=== PATIENT | female | born 1985 | race Caucasian/White ===

== ENCOUNTER 2018-04-05 15:25 | Outpatient (CLI) | payer OTHER ==
--- NOTE | 2018-04-05 18:15 | MRI Report ---
Reason: HEADACHE, CERVICALGIA Procedure Date: 04/05/2018 Accession Number: [id number] / [id number] Procedure: MRI - Cervical Spine W/O CPT Code: FULL RESULT: EXAM: MRI CERVICAL SPINE WITHOUT CONTRAST EXAM DATE: 04/05/2018 03:49 PM. CLINICAL HISTORY: Headache, cervicalgia. COMPARISONS: None. TECHNIQUE: Multiplanar, multisequence T1-weighted and fluid-sensitive sequences of the cervical spine without contrast. Other: None. FINDINGS: Neurologic Structures: The visualized posterior fossa structures are unremarkable. No signal abnormality in the visualized spinal cord. Alignment: No scoliosis or spondylolisthesis. Bone Marrow: No gross fractures or bone lesions. No marrow edema. Interspace Levels/Facets: C1-C2: Unremarkable. C2-C3: Unremarkable. C3-C4: Unremarkable. C4-C5: Minimal broad-based posterior disk bulge. Slight thecal sac indentation but no neural impingement or stenosis. C5-C6: Very shallow posterior disk bulge, no significant mass effect, otherwise unremarkable. C6-C7: Unremarkable. C7-T1: Unremarkable. Musculature: Normal. No edema or fatty atrophy. Other: The paravertebral and prevertebral soft tissues are normal. IMPRESSION: Minimal disk bulges at C4-C5 and C5-C6. No stenosis. Otherwise normal. RADIA
--- NOTE | 2018-04-05 19:05 | MRI Report ---
Reason: HEADACHE, CERVICALGIA Procedure Date: 04/05/2018 Accession Number: [id number] / [id number] Procedure: MRI - Brain W/O CPT Code: FULL RESULT: EXAM: MRI BRAIN WITHOUT CONTRAST EXAM DATE: 04/05/2018 04:12 PM. CLINICAL HISTORY: HEADACHE, CERVICALGIA. COMPARISON: CERVICAL SPINE W/O 04/05/2018 3:49 PM. TECHNIQUE: Multiplanar, multisequence T1-weighted and fluid-sensitive MR sequences of the brain were performed. Sequences optimized for routine evaluation. Other: None. IV Contrast: None. FINDINGS: Brain Volume: Normal for age. Parenchyma/Dura: No mass, acute infarct or hemorrhage. No white matter lesions identified. No Chiari malformation. Ventricles/Cisterns: No hydrocephalus. No abnormal extra-axial fluid collection or hemorrhage. Orbits: Symmetric and unremarkable. Sella Turcica: The pituitary gland, cavernous sinuses, suprasellar cistern and optic chiasm are unremarkable. IAC: Symmetric and unremarkable. Vasculature: Normal signal flow void is seen in the major arterial structures at the skull base. Sinuses: No acute appearing sinus disease. Bones: No focal pathologic appearing marrow signal changes. Other: None. IMPRESSION: 1. Normal brain MRI. RADIA
== END 2018-04-05 15:26 | disposition home or self-care (01) ==
LOC: DI 15:25
PROVIDERS: ATTEND Family Medicine
DX: M50.221 Other cervical disc displacement at C4-C5 level (principal); R51 Headache
CPT/HCPCS: 70551; 72141

== ENCOUNTER 2019-03-22 02:53 | Emergency (ER) | payer OTHER ==
--- NOTE | 2019-03-22 03:13 | ED Physician Documentation ---
PD HPI ABD PAIN - Stated complaint Stated Complaint: ABD PX - Chief complaint Chief Complaint: Abd Pain - History obtained from History obtained from: Patient - History of Present Illness Timing - onset: How many weeks ago (2) Timing - details: Gradual onset Quality: Other ("Heaviness") Location: All over / everywhere Radiation: Left flank, Right flank Worsened by: Other (Drinking water tonight) Associated symptoms: Nausea, Constipation, Dizzy, Near syncope / syncope. No: Fever, Vomiting, Diarrhea, Vaginal bleeding - Additional information Additional information: This is a 33-year-old woman who is 18 weeks by ultrasound presents tonight with complaints of stomach pain is been going on for couple weeks. She describes it as a heaviness that she feels particular if she lays on her left side of her and then gets up she can feel it can move into more central around her chest. Wraps around both sides worse on the left side to her back and is been significant enough that it prevents her from eating. Her stools were soft and regular until she stopped taking her probiotics this week and she became constipated so she restarted them yesterday and says she is no longer. She came in tonight because she drank some room temperature water on her bedside table and it just precipitated such intense increase in the pain that she broke out in a sweat and got dizzy and was feeling very faint. She felt nauseous with that intense pain but never vomited. She wonders if this could be related to the daily aspirin she was placed on a 12 weeks of to prevent preeclampsia. She denies any vaginal bleeding and she is feeling the baby move. She felt dizzy but did not pass out. She denies any recent illness of sore throat or cough. She is 7 para 3 with 2 spontaneous and one therapeutic . She is not currently working outside the home. Review of Systems Constitutional: reports: Sweats. denies: Fever Ears: denies: Ear pain Nose: denies: Congestion Throat: denies: Sore throat Cardiac: denies: Chest pain / pressure Respiratory: denies: Dyspnea GI: reports: Abdominal Pain, Nausea, Constipation. denies: Vomiting : reports: Now EGA (18 weeks by U/S). denies: Dysuria, Hematuria Skin: denies: Rash Musculoskeletal: reports: Back pain Neurologic: reports: Near syncope PD PAST MEDICAL HISTORY - Past Medical History Cardiovascular: None Respiratory: None Endocrine/Autoimmune: None GI: None REMEDY DEVELOPER: Ovarian cysts : None HEENT: None Psych: Depression Musculoskeletal: None Derm: None - Past Surgical History Past Surgical History: Yes /REMEDY DEVELOPER: Other - Present Medications Home Medications: Ambulatory Orders Medication Instructions Recorded Confirmed Albuterol Sulf [Ventolin Hfa 2 puffs INH Q4HR PRN #1 inhaler 03/08/17 Inhaler] - Allergies Allergies/Adverse Reactions: Allergies Allergy/AdvReac Type Severity Reaction Status Date / Time Penicillins Allergy Unknown Verified 03/08/17 17:07 - Social History Does the pt smoke?: No Smoking Status: Never smoker Does the pt drink ETOH?: No Does the pt have substance abuse?: No - Immunizations Immunizations are current?: Yes - POLST Patient has POLST: No PD ED PE NORMAL - Vitals Vital signs reviewed: Yes - General General: Alert and oriented X 3, No acute distress, Well developed/nourished - HEENT HEENT: Atraumatic, PERRL, EOMI, Moist mucous membranes, Pharynx benign - Neck Neck: Supple, no meningeal sign - Cardiac Cardiac: RRR, No murmur, Strong equal pulses - Respiratory Respiratory: No respiratory distress, Clear bilaterally - Abdomen Abdomen: Normal bowel sounds, Soft, Other (There is tenderness in the right upper quadrant. The uterus is gravid just below the level of the umbilicus. No other definite masses.) - Back Back: No CVA TTP - Derm Derm: Normal color, Warm and dry, No rash - Neuro Neuro: Alert and oriented X 3, sales solutions associate 2-12 intact, No motor deficit, No sensory deficit, Normal speech - Psych Psych: Normal mood, Normal affect Results - Vitals Vitals: Vital Signs - 24 hr 03/22/19 03/22/19 03/22/19 09:34 11:00 11:50 Heart Rate 102 H 88 93 Respiratory 15 15 18 Rate Blood Pressure 120/80 118/78 109/73 O2 Saturation 98 100 98 Oxygen O2 Source Room air - Labs Labs: Laboratory Tests 03/22/19 03/22/19 03/22/19 03:40 03:45 03:45 WBC 13.1 H RBC 4.04 L Hgb 11.7 L Hct 35.7 L MCV 88.4 MCH 29.0 MCHC 32.8 RDW 13.0 Plt Count 238 MPV 11.2 H Neut # (Auto) 9.9 H Lymph # (Auto) 2.0 [place] # (Auto) 0.8 Eos # (Auto) 0.3 Baso # (Auto) 0.1 Absolute Nucleated RBC 0.00 Nucleated RBC % 0.0 Sodium 138 Potassium 3.3 L Chloride 102 Carbon Dioxide 24 Anion Gap 12.0 BUN 10 Creatinine 0.6 Estimated GFR (MDRD) 114 Glucose 94 Calcium 9.2 Total Bilirubin 0.3 AST 14 ALT 13 Alkaline Phosphatase 80 Total Protein 7.5 Albumin 3.4 Globulin 4.1 Albumin/Globulin Ratio 0.8 L Lipase 29 Urine Color YELLOW Urine Clarity CLEAR Urine pH 7.0 Ur Specific [place] <=1.005 Urine Protein NEGATIVE Urine Glucose (UA) NEGATIVE Urine Ketones NEGATIVE Urine Occult Blood TRACE-LYSE Urine Nitrite NEGATIVE Urine Bilirubin NEGATIVE Urine Urobilinogen 0.2 (NORMAL) Ur Leukocyte Esterase NEGATIVE Ur Microscopic Review NOT INDICATED Urine Culture Comments NOT INDICATED PD MEDICAL DECISION MAKING - ED course Complexity details: reviewed results, re-evaluated patient, d/w patient, d/w family ED course: Patient's white blood cell count is mildly elevated at 13.1. CMP and lipase are normal. Her urinalysis is negative and no protein in it. On reevaluation she still having tenderness in the right quadrant with some guarding. I did have ultrasound come in to evaluate the appendix and gallbladder. She has not had anything to eat since 5:30 last night. heart tones were 166. Patient calculates out to 18 weeks and 6 days gestation based on her due date. Late entry: Care turned over to Dr Lucas for final disposition. Departure - Departure Disposition: 02 Transfer Acute Care Hosp Clinical Impression: Abdominal pain, , Leukocytosis Condition: Stable Discharge Date/Time: 03/22/19 12:01
[2019-03-22 03:57] LABS: BASOPHILS # (AUTO) 0.1 10^3/uL (0.0-0.1); BASOPHILS % (AUTO) 0.5 %; EOSINOPHILS # (AUTO) 0.3 10^3/uL (0.0-0.7); EOSINOPHILS % (AUTO) 2.1 %; HGB - HEMOGLOBIN 11.7 g/dL (12.0-16.0); LYMPHOCYTES % (AUTO) 15.1 %; MEAN CORPUSCULAR HGB CONC 32.8 g/dL (32.0-36.0); MEAN CORPUSCULAR VOLUME 88.4 fL (81.0-99.0); MEAN PLATELET VOLUME 11.2 fL (7.9-10.8); MONOCYTES # (AUTO) 0.8 10^3/uL (0.0-1.0); MONOCYTES % (AUTO) 5.8 %; NEUTROPHILS # (AUTO) 9.9 10^3/uL (1.5-6.6); NEUTROPHILS % (AUTO) 75.7 %; PLT - PLATELET COUNT 238 10^3/uL (130-450); RED BLOOD COUNT 4.04 10^6/uL (4.20-5.40); WHITE BLOOD COUNT 13.1 x10^3/uL (4.8-10.8)
[2019-03-22 04:05] LABS: BILIRUBIN,URINE NEGATIVE (NEGATIVE); GLUCOSE, URINE (UA) NEGATIVE (NEGATIVE); KETONES,URINE (UA) NEGATIVE (NEGATIVE); LEUKOCYTE ESTERASE, URINE NEGATIVE (NEGATIVE); NITRITE,URINE NEGATIVE (NEGATIVE); OCCULT BLOOD,URINE TRACE-LYSE (NEGATIVE); PROTEIN,URINE NEGATIVE (NEGATIVE); UROBILINOGEN,URINE 0.2 (NORMAL) E.U./dL (NORMAL)
[2019-03-22 04:06] LABS: CLARITY,URINE CLEAR (CLEAR)
[2019-03-22 04:10] LABS: ALBUMIN 3.4 g/dL (3.2-5.5); ALBUMIN/GLOBULIN RATIO 0.8 (1.0-2.2); BILIRUBIN,TOTAL 0.3 mg/dL (0.2-1.0); CALCIUM 9.2 mg/dL (8.5-10.3); CREATININE 0.6 mg/dL (0.4-1.0); TOTAL PROTEIN 7.5 g/dL (6.7-8.2)
--- NOTE | 2019-03-22 06:44 | Ultrasound Report ---
Reason: with R UQ pain Procedure Date: 03/22/2019 Accession Number: [id number] / [id number] Procedure: US - Abdomen Complete CPT Code: Final Report FULL RESULT: EXAM: ABDOMEN ULTRASOUND EXAM DATE: 03/22/2019 06:21 AM. CLINICAL HISTORY: with right upper quadrant abdominal pain. COMPARISON: CHEST ANGIO 03/08/2017 6:05 PM. TECHNIQUE: Real-time scanning was performed with static images obtained. FINDINGS: Liver: Normal in size and echotexture. 16 cm. Main portal vein flow: Hepatopetal. Gallbladder: Scattered tiny polyps. No stones, wall thickening, or sonographic Kraus's sign. Biliary System: Common bile duct measures 3 mm. No intrahepatic or extrahepatic ductal dilatation. Pancreas: Visualized portion is unremarkable. Kidneys: Right: 10 cm longitudinally. Normal. No contour-deforming mass, stones, or hydronephrosis. Left: 12 cm longitudinally. Incidental small 1 cm cyst at the upper pole. No solid appearing mass, stones, or hydronephrosis. Spleen: 11 cm. Normal in size and echotexture. Aorta and Inferior Vena Cava: Unremarkable. Other: Live fetus documented. IMPRESSION: Negative abdomen ultrasound. RADIA
[2019-03-22] MEDS ORDERED: MAG HYDROX/AL HYDROX/SIMETH 30 ML UDC PO STA (06:50)
[2019-03-22] MEDS ORDERED: LIDOCAINE VISCOUS 2% 15 ML UDC MM STA (06:50)
--- NOTE | 2019-03-22 08:45 | Ultrasound Report ---
Reason: Abdominal pain Procedure Date: 03/22/2019 Accession Number: [id number] / [id number] Procedure: US - Abdomen Limited CPT Code: Final Report FULL RESULT: EXAM: Limited ABDOMINAL ultrasound EXAM DATE: 03/22/2019 08:18 AM. CLINICAL HISTORY: Abdominal pain radiating to the back for 2 weeks, worsening today. 21 weeks . COMPARISON: ABDOMEN COMPLETE 03/22/2019 5:25 AM. TECHNIQUE: Real-time scanning was performed of the right lower quadrant with static images obtained. FINDINGS: APPENDIX: Not seen. COMPRESSION TOLERATED: Yes. No right lower quadrant tenderness. ASSOCIATED FINDINGS: Lymph Nodes Seen: No. Free Fluid/Complex Fluid Seen: No. Thickened Bowel Wall Seen: No. Other: The right ovary was visualized and appears normal. The right ovary measures 2.0 x 1.9 x 2.2 cm. IMPRESSION: 1. The appendix was not visualized. 2. Normal right ovary. RADIA
[2019-03-22] MEDS ORDERED: SODIUM CHLORIDE 0.9% 1,000 ML IV ONE (08:46)
[2019-03-22] MEDS ORDERED: DEXTROSE 5%-0.45% NACL 1,000 ML IV ONE (08:55)
--- NOTE | 2019-03-22 10:09 | ED Physician Documentation ---
ED Addendum - Addendum Addendum: 03/22/19 10:05 I assumed care from Dr. Patino. I spoke with the patient and examined her and she does have right mid abdominal tenderness just lateral to the top of the fundus. Its a bit high to consider round ligament pain. There is no tenderness in the McBurney's point itself. The epigastric and right upper quadrant are not tender. There is localized guarding at the area of tenderness. There is no percussion or rebound. Review of the recent tests showed normal gallbladder. Ultrasound could not identify the appendix. The movement and heartbeat had been normal on bedside ultrasound. The white count is somewhat elevated at 13,000 which is still a bit abnormal for . Other labs are good. Consideration for appendicitis is present. Our MRI machine is unable to do abdominal exams due to a faulty part which is unlikely to get fixed today. I talked with the patient and she would like to try more local facility. I talked with Dr. Goncalves who is on for surgery at [facility] and would be able to take care of the patient if she has appendicitis. She requests ER to ER transfer for testing as the diagnosis is currently unclear. I talked with Dr. Simental who is on in the emergency room at [facility] and accepts the patient for transfer for more definitive studies and care. Diagnoses: Right mid to lower abdominal pain of uncertain etiology number 218 weeks #3 rule out appendicitis Disposition: Patient is transferred stable condition to [facility] for more definitive studies.
[2019-03-22 11:51] VITALS: BP 109/73
== END 2019-03-22 12:01 | disposition short-term general hospital (02) ==
LOC: ED 02:53
DX: O99.89 Other specified diseases and conditions complicating pregnancy, childbirth and the puerperium (principal); R10.9 Unspecified abdominal pain; D72.829 Elevated white blood cell count, unspecified; Z3A.18 18 weeks gestation of pregnancy
CPT/HCPCS: 36415; 76700; 76705; 80053; 81003; 83690; 85025; 96360; 99284; A9270; 81001; 87086

== ENCOUNTER 2019-03-22 12:02 | Outpatient (CLI) | payer OTHER | END 2019-03-22 12:03 | disposition short-term general hospital (02) | LOC: EMS 12:02 | PROVIDERS: ATTEND Surgery | DX: O99.89 Other specified diseases and conditions complicating pregnancy, childbirth and the puerperium (principal); R10.9 Unspecified abdominal pain | CPT/HCPCS: A0425; A0428 ==

== ENCOUNTER 2019-04-01 23:58 | Emergency (ER) | payer OTHER ==
--- NOTE | 2019-04-02 00:44 | ED Physician Documentation ---
PD HPI ABD PAIN - Stated complaint Stated Complaint: BK/ABD PX/20WKS PREG - Chief complaint Chief Complaint: Abd Pain - History obtained from History obtained from: Patient - History of Present Illness Timing - onset: How many weeks ago (2) Timing - duration: Weeks (2She originally had some right abdominal pain about 2 weeks ago and was seen here in the emergency room on 1122 with the right mid abdominal pain into the right flank. She had ultrasound showed normal but unable to visualize the appendix. She was sent to [facility] for MRI of the abdomen is ours was unable to obtain an abdominal MRI here at our facility. The report from [facility] showed a normal MRI of the abdomen without any appendicitis, kidney stones, focal infections or other concerns. She been using Tylenol for the pains and at had it mildly to some degree until this past day when she had had a significant increase in the pain. She had had a positive urinalysis and was treated for a bladder infection with Macrobid for the past 5 or 6 days. She had noticed an improvement in the pain initially after starting the meds, but now worse again.) Timing - details: Gradual onset, Still present (worse the past day), Waxing and waning Quality: Cramping, Aching, Pain Location: RLQ Radiation: Right flank Improved by: No: Laying still, Vomiting Worsened by: Moving, Palpation Associated symptoms: Nausea. No: Vomiting, Diarrhea, Dysuria, Chest pain, Vaginal bleeding Similar symptoms before: No diagnosis Recently seen: Emergency Dept (10 days ago) Review of Systems Constitutional: denies: Fever, Chills, Myalgias Nose: denies: Rhinorrhea / runny nose, Congestion Throat: denies: Sore throat Cardiac: denies: Chest pain / pressure Respiratory: denies: Cough GI: reports: Abdominal Pain, Nausea. denies: Abdominal Swelling, Vomiting, Diarrhea : reports: Frequency, Now EGA (20 weeks). denies: Dysuria, Discharge, Vaginal bleeding Skin: denies: Rash Musculoskeletal: reports: Back pain PD PAST MEDICAL HISTORY - Past Medical History Past Medical History: Yes Cardiovascular: None Respiratory: None Endocrine/Autoimmune: None GI: None FLOORS BUFFER: Ovarian cysts : None HEENT: None Psych: Depression Musculoskeletal: None Derm: None Other Past Medical History: hydronephrosis - Past Surgical History Past Surgical History: Yes /FLOORS BUFFER: section, Other - Present Medications Home Medications: Ambulatory Orders Medication Instructions Recorded Confirmed Albuterol Sulf [Ventolin Hfa 2 puffs INH Q4HR PRN #1 inhaler 03/08/17 Inhaler] Cephalexin [Keflex] 500 mg PO TID #20 capsule 04/02/19 Hydrocodone/Acetaminophen [[place] 1 each PO Q6H PRN #15 tablet 04/02/19 5-325 Tablet] Naproxen 375 mg PO BID #20 tablet 04/02/19 - Allergies Allergies/Adverse Reactions: Allergies Allergy/AdvReac Type Severity Reaction Status Date / Time Penicillins Allergy Unknown Verified 03/08/17 17:07 - Social History Does the pt smoke?: No Smoking Status: Never smoker Does the pt drink ETOH?: No Does the pt have substance abuse?: No - Immunizations Immunizations are current?: Yes - POLST Patient has POLST: No PD ED PE NORMAL - Vitals Vital signs reviewed: Yes - General General: Alert and oriented X 3, Well developed/nourished, Other (appears uncomfortable) - HEENT HEENT: Pharynx benign - Neck Neck: Supple, no meningeal sign, No adenopathy - Cardiac Cardiac: RRR, No murmur - Respiratory Respiratory: Clear bilaterally - Abdomen Abdomen: Soft, No organomegaly, Other (She is gravid with the fundus at the level of the umbilicus. She has some tenderness to the right mid to lower abdomen. It is not tender very low however. The right upper quadrant itself is not tender. There is no flank tenderness.) - Back Back: No CVA TTP - Derm Derm: Normal color, Warm and dry, No rash - Extremities Extremities: No tenderness to palpate, Normal ROM s pain, No edema, No calf tenderness / cord - Neuro Neuro: Alert and oriented X 3, No motor deficit, Normal speech Results - Vitals Vitals: Oxygen O2 Source Room air - Labs Labs: Laboratory Tests 04/02/19 04/02/19 04/02/19 01:34 01:50 01:50 WBC 13.1 H RBC 4.13 L Hgb 11.9 L Hct 35.5 L MCV 86.0 MCH 28.8 MCHC 33.5 RDW 12.9 Plt Count 255 MPV 11.7 H Neut # (Auto) 9.3 H Lymph # (Auto) 2.6 [place] # (Auto) 0.7 Eos # (Auto) 0.3 Baso # (Auto) 0.1 Absolute Nucleated RBC 0.00 Nucleated RBC % 0.0 Sodium 137 Potassium 3.5 Chloride 103 Carbon Dioxide 23 Anion Gap 11.0 BUN 9 Creatinine 0.5 Estimated GFR (MDRD) 141 Glucose 98 Calcium 9.2 Total Bilirubin 0.4 AST 16 ALT 13 Alkaline Phosphatase 88 Total Protein 7.8 Albumin 3.6 Globulin 4.2 Albumin/Globulin Ratio 0.9 L Lipase 41 Urine Color YELLOW Urine Clarity CLEAR Urine pH 7.0 Ur Specific [place] <=1.005 Urine Protein NEGATIVE Urine Glucose (UA) NEGATIVE Urine Ketones NEGATIVE Urine Occult Blood TRACE-LYSE Urine Nitrite NEGATIVE Urine Bilirubin NEGATIVE Urine Urobilinogen 0.2 (NORMAL) Ur Leukocyte Esterase NEGATIVE Ur Microscopic Review NOT INDICATED Urine Culture Comments NOT INDICATED PD MEDICAL DECISION MAKING - ED course Complexity details: reviewed old records, reviewed results, considered differential (She is having lower abdominal pain into the right flank. She had been diagnosed with a urinary tract infection is been on Macrobid. The urine looks okay here. However consider the possibility of the Macrobid clearing the urine to have good luck getting urinalysis but yet still have tissue infection. Her uterus and appear normal on bedside ultrasound. She had had a recent MRI of the abdomen without any acute process and it had the same pain to the right abdomen. It did not see a value in repeating any imaging. She was given some medications for the pain which would still be appropriate at this point in her .), d/w patient Departure - Departure Disposition: 01 Home, Self Care Clinical Impression: Flank pain Abdominal pain Qualifiers: Abdominal location: lower abdomen, unspecified Qualified Code(s): R10.30 - Lower abdominal pain, unspecified Condition: Stable Record reviewed to determine appropriate education?: Yes Instructions: ED Abdominal Pain Unkn Cause Follow-Up: SALLIE WAGONER DO [Primary Care Provider] - Prescriptions: Cephalexin [Keflex] 500 mg PO TID #20 capsule Hydrocodone/Acetaminophen [[place] 5-325 Tablet] 1 each PO Q6H PRN #15 tablet PRN Reason: Pain Naproxen 375 mg PO BID #20 tablet Comments: Stay well-hydrated. Tylenol 500 mg 4 times a day. Also use naproxen twice daily for the next 7 days. To this add hydrocodone if needed for worse pain. These medicines are okay in the short-term at this point in . Your urine sample looks okay here today. However your symptoms may still be suggestive of bladder or kidney infection. It is possible the antibiotic you have taken had cleared the urine but still not cleared it from the tissue of the urinary tract. Therefore take cephalexin 3 times a day for a week. It is possible you may be having pains related to the uterus and pressure on the ureters leading to some swelling of the kidney. Follow-up with your PELLET PRESS OPERATOR in the next couple of days for recheck. Discharge Date/Time: 04/02/19 04:22
[2019-04-02] MEDS ORDERED: SODIUM CHLORIDE 0.9% 1,000 ML IV ONE (01:02)
[2019-04-02] MEDS ORDERED: KETOROLAC 30 MG/ML VIAL IVP STA (01:02)
[2019-04-02] MEDS ORDERED: HYDROmorphone 2 MG/ML VIAL IVP STA (01:02)
[2019-04-02 01:40] LABS: BILIRUBIN,URINE NEGATIVE (NEGATIVE); GLUCOSE, URINE (UA) NEGATIVE (NEGATIVE); KETONES,URINE (UA) NEGATIVE (NEGATIVE); LEUKOCYTE ESTERASE, URINE NEGATIVE (NEGATIVE); NITRITE,URINE NEGATIVE (NEGATIVE); OCCULT BLOOD,URINE TRACE-LYSE (NEGATIVE); PROTEIN,URINE NEGATIVE (NEGATIVE); UROBILINOGEN,URINE 0.2 (NORMAL) E.U./dL (NORMAL)
[2019-04-02 01:41] LABS: CLARITY,URINE CLEAR (CLEAR)
[2019-04-02] MEDS ORDERED: cefTRIAXone 1 GM VIAL IVP STA (02:05)
[2019-04-02 02:11] LABS: BASOPHILS # (AUTO) 0.1 10^3/uL (0.0-0.1); BASOPHILS % (AUTO) 0.5 %; EOSINOPHILS # (AUTO) 0.3 10^3/uL (0.0-0.7); EOSINOPHILS % (AUTO) 2.3 %; HGB - HEMOGLOBIN 11.9 g/dL (12.0-16.0); LYMPHOCYTES # (AUTO) 2.6 10^3/uL (1.5-3.5); LYMPHOCYTES % (AUTO) 19.9 %; MEAN CORPUSCULAR HEMOGLOBIN 28.8 pg (27.0-31.0); MEAN CORPUSCULAR HGB CONC 33.5 g/dL (32.0-36.0); MEAN PLATELET VOLUME 11.7 fL (7.9-10.8); MONOCYTES # (AUTO) 0.7 10^3/uL (0.0-1.0); MONOCYTES % (AUTO) 5.6 %; NEUTROPHILS # (AUTO) 9.3 10^3/uL (1.5-6.6); NEUTROPHILS % (AUTO) 70.9 %; PLT - PLATELET COUNT 255 10^3/uL (130-450); RED BLOOD COUNT 4.13 10^6/uL (4.20-5.40); RED CELL DISTRIBUTION WIDTH 12.9 % (12.0-15.0); WHITE BLOOD COUNT 13.1 x10^3/uL (4.8-10.8)
[2019-04-02 02:20] LABS: ALBUMIN 3.6 g/dL (3.2-5.5); ALBUMIN/GLOBULIN RATIO 0.9 (1.0-2.2); BILIRUBIN,TOTAL 0.4 mg/dL (0.2-1.0); CALCIUM 9.2 mg/dL (8.5-10.3); CREATININE 0.5 mg/dL (0.4-1.0); TOTAL PROTEIN 7.8 g/dL (6.7-8.2)
[2019-04-02 04:08] VITALS: BP 108/71
== END 2019-04-02 04:22 | disposition home or self-care (01) ==
LOC: ED 23:58
DX: O99.89 Other specified diseases and conditions complicating pregnancy, childbirth and the puerperium (principal); R10.31 Right lower quadrant pain; Z3A.20 20 weeks gestation of pregnancy
CPT/HCPCS: 36415; 80053; 81001; 81003; 83690; 85025; 87086; 96361; 96372; 96374; 99284

== ENCOUNTER 2019-07-28 10:11 | Outpatient (CLI) | payer OTHER ==
[2019-07-28] MEDS ORDERED: TERBUTALINE 1 MG/ML VIAL SUBQ ONE (10:35)
[2019-07-28 10:40] VITALS: BP 122/81
[2019-07-28] MEDS ORDERED: LACTATED RINGERS 1,000 ML IV ONE ×3 (11:04→12:05)
[2019-07-28] MEDS: LACTATED RINGERS 1,000 ML IV ONE ×2 (11:08→12:08)
[2019-07-28] MEDS ORDERED: TERBUTALINE 1 MG/ML VIAL SUBQ SCH (12:46)
--- NOTE | 2019-07-28 13:33 | PROVIDER PROGRESS NOTE ---
- HPI Chief Complaint: Other (Patient is a 34 yo at 37w1d ega here with painful contractions Patient has been followed by [facility] for possible TOLAC. Had one late delivery for breech presentation with PPROM. Has had 2 successful VBACs, one at 40+0 and one at 38 wga. Has been having painful contractions in the setting of weeks of prodromal labor. She reports have SVE in clinic and was 2 cm dilated. Contractions are 1-3 cm apart and she is breathing through them. She was on her way to [facility] [place] and her provider recommended that she get checked at [facility] prior to proceeding off [address]. She is about 2 cm at initial exam. She desired TOLAC and strongly desires deliveyr at [facility]. Denies lower abdominal pain other than that associated with ctx. No LOF or VB. Endorses FM. Hx of long labor course.) Current : Current EDU 08/17/19 Gestation 37 Weeks and 1 Days 7 Para 3 Vital Signs Temperature 98.1 F 07/28/19 10:40 Heart Rate 112 H 07/28/19 10:40 Respiratory Rate 20 07/28/19 10:40 Blood Pressure 122/81 H 07/28/19 10:40 O2 Saturation 100 07/28/19 10:40 Temperature 98.1 F 07/28/19 10:40 Heart Rate 112 H 07/28/19 10:40 Respiratory Rate 20 07/28/19 10:40 Blood Pressure 122/81 H 07/28/19 10:40 O2 Saturation 100 07/28/19 10:40 - Exam GEN: Discomfort with CTX CV: RR; tachycaridc after terbutaline RESP: nl effort ABD: gravis, S&NT. no TTP at incision line SVE: 60/-2 per RN exam EXT: WWP, no LE edema See EFM notation--> cat I tracing - Procedures OB Procedure Performed: NST NST Procedure: 145 mod heraclio 15x15 accels no decels TOCO Q1-3 min Service Date of procedure: 07/28/19 Procedure Details: Cat I tracing - Plan Plan: Patient is a 34 yo at 37+1 wga with hx of x2 here with active contractions Patient underwent serial SVE over the course of 2+ hours Advanced from 2 cm to 2.5 cm with small gain in station over 1.5 hours. Given terbutaline and 1L LR bolus. Contractions slowed and SVE returned to prior 2/60/-2 with decreased intensity behind contractions Abd exam remains benign with no TTP in lower abdomen. EFM shows Cat I tracing Contractions slowed to Q3 min SVE remains stable over 2 hours of observation Patient was counseled extensively regarding risks to proceeding to [place], including potential for uterine rupture en route, as well as limited half-life of terbutaline. She acknowledges risks and has identified transportation to [place]. Discharged to transfer to [facility] via private car DX: Early labor Hx of prior
--- NOTE | 2019-07-28 21:49 | Labor Flowsheet ---
Labor Flowsheet Datetime Report Generated by CPN: 07/28/2019 21:49 Datetime: 07/28/2019 21:47 VITAL SIGNS NBP Sys/Yanci/Mean (mmHg): 113 : 60 : 72 Pulse: 99 Datetime: 07/28/2019 13:39 SpO2 (%): 100
== END 2019-07-28 13:47 | disposition home or self-care (01) ==
LOC: WFO 10:11 → FBP 10:14 → WFO 13:47
PROVIDERS: ATTEND Family Medicine
DX: O09.213 Supervision of pregnancy with history of pre-term labor, third trimester (principal); O60.03 Preterm labor without delivery, third trimester; O34.219 Maternal care for unspecified type scar from previous cesarean delivery; Z3A.37 37 weeks gestation of pregnancy
CPT/HCPCS: 96360; 96372; 99214; J7120

== ENCOUNTER 2019-08-23 00:20 | Emergency (ER) | payer OTHER ==
[2019-08-23 01:00] LABS: BASOPHILS # (AUTO) 0.1 10^3/uL (0.0-0.1); BASOPHILS % (AUTO) 0.5 %; EOSINOPHILS # (AUTO) 0.2 10^3/uL (0.0-0.7); EOSINOPHILS % (AUTO) 0.6 %; HGB - HEMOGLOBIN 10.6 g/dL (12.0-16.0); LYMPHOCYTES # (AUTO) 1.2 10^3/uL (1.5-3.5); LYMPHOCYTES % (AUTO) 5.2 %; MEAN CORPUSCULAR HEMOGLOBIN 25.5 pg (27.0-31.0); MEAN CORPUSCULAR HGB CONC 31.5 g/dL (32.0-36.0); MEAN PLATELET VOLUME 11.2 fL (7.9-10.8); MONOCYTES # (AUTO) 1.2 10^3/uL (0.0-1.0); MONOCYTES % (AUTO) 4.9 %; NEUTROPHILS # (AUTO) 20.6 10^3/uL (1.5-6.6); NEUTROPHILS % (AUTO) 87.2 %; PLT - PLATELET COUNT 318 10^3/uL (130-450); RED BLOOD COUNT 4.16 10^6/uL (4.20-5.40); RED CELL DISTRIBUTION WIDTH 15.2 % (12.0-15.0); WHITE BLOOD COUNT 23.6 x10^3/uL (4.8-10.8)
[2019-08-23 01:15] LABS: ALBUMIN 2.8 g/dL (3.2-5.5); ALBUMIN/GLOBULIN RATIO 0.6 (1.0-2.2); BILIRUBIN,TOTAL 0.5 mg/dL (0.2-1.0); CALCIUM 8.8 mg/dL (8.5-10.3); CREATININE 0.6 mg/dL (0.4-1.0); TOTAL PROTEIN 7.6 g/dL (6.7-8.2)
[2019-08-23 01:30] LABS: RBC MORPHOLOGY (MULTIPLE) NORMAL APPEARANCE (NORMAL)
[2019-08-23 01:31] LABS: PLATELET ESTIMATE, MANUAL NORMAL (130-450,000) (NORMAL); PLATELET MORPHOLOGY NORMAL APPEARANCE (NORMAL)
[2019-08-23 02:21] LABS: BILIRUBIN,URINE NEGATIVE (NEGATIVE); GLUCOSE, URINE (UA) NEGATIVE (NEGATIVE); KETONES,URINE (UA) NEGATIVE (NEGATIVE); LEUKOCYTE ESTERASE, URINE NEGATIVE (NEGATIVE); NITRITE,URINE NEGATIVE (NEGATIVE); OCCULT BLOOD,URINE LARGE (NEGATIVE); PROTEIN,URINE 100 mg/dL (NEGATIVE); UROBILINOGEN,URINE 0.2 (NORMAL) E.U./dL (NORMAL)
[2019-08-23 02:22] LABS: CLARITY,URINE CLEAR (CLEAR)
[2019-08-23 02:27] LABS: BACTERIA,URINE Few /HPF (None Seen); MUCUS,URINE Marked Strands; SQUAMOUS EPITHELIAL CELL,UR MOD Squamous (<= Few)
--- NOTE | 2019-08-23 02:30 | ED Physician Documentation ---
PD HPI ABD PAIN - Stated complaint Stated Complaint: ABD PX - Chief complaint Chief Complaint: Abd Pain - History obtained from History obtained from: Patient - History of Present Illness Timing - onset: Enter time (05:00), Yesterday (08/21) Timing - details: Gradual onset, Constant Pain level now: 7 Quality: Pain Location: All over / everywhere Radiation: Other (does not radiate) Improved by: Laying still Worsened by: Moving, Breathing, Palpation Associated symptoms: Fever (Tmax 101.5 earlier this evening .). No: Nausea, Vomiting, Diarrhea, Constipation Similar symptoms before: Has not had sx before Recently seen: Other (vaginal delivery 5 days ago, 40w1d without complication) Review of Systems Constitutional: reports: Fever, Sweats Eyes: reports: Reviewed and negative Ears: reports: Reviewed and negative Nose: reports: Reviewed and negative Throat: reports: Reviewed and negative Cardiac: reports: Reviewed and negative Respiratory: reports: Reviewed and negative GI: reports: Abdominal Pain. denies: Nausea, Vomiting, Constipation, Diarrhea : reports: Vaginal bleeding (gradually tapering vaginal bleeding since giving 5 days ago). 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 : None HEENT: None Psych: Depression Musculoskeletal: None Derm: None - Past Surgical History Past Surgical History: Yes /WASHER ENGINEER HELPER: section, Other - Present Medications Home Medications: Ambulatory Orders Medication Instructions Recorded Confirmed Albuterol Sulf [Ventolin Hfa 2 puffs INH Q4HR PRN #1 inhaler 03/08/17 Inhaler] Cephalexin [Keflex] 500 mg PO TID #20 capsule 04/02/19 Hydrocodone/Acetaminophen [[place] 1 each PO Q6H PRN #15 tablet 04/02/19 5-325 Tablet] Naproxen 375 mg PO BID #20 tablet 04/02/19 - Allergies Allergies/Adverse Reactions: Allergies Allergy/AdvReac Type Severity Reaction Status Date / Time Penicillins Allergy Unknown Verified 08/23/19 00:36 montelukast [From Singulair] AdvReac Unknown Verified 08/23/19 00:36 - Social History Does the pt smoke?: No Smoking Status: Never smoker Does the pt drink ETOH?: No Does the pt have substance abuse?: No - Immunizations Immunizations are current?: Yes - POLST Patient has POLST: No PD ED PE NORMAL - Vitals Vital signs reviewed: Yes - General General: Alert and oriented X 3, No acute distress, Well developed/nourished - HEENT HEENT: Moist mucous membranes - Neck Neck: Supple, no meningeal sign - Cardiac Cardiac: No murmur - Respiratory Respiratory: No respiratory distress, Clear bilaterally - Abdomen Abdomen: Soft - Back Back: No CVA TTP - Derm Derm: Normal color, Warm and dry, No rash - Extremities Extremities: No edema PD ED PE EXPANDED - Cardiac Cardiac: Tachy, Regular Rhythm - Abdomen Abdomen: Tender to palpation, Rebound, Generalized/diffuse Results - Vitals Vitals: Vital Signs - 24 hr 08/23/19 08/23/19 08/23/19 00:25 00:45 02:01 Temperature 36.6 C Heart Rate 128 H 115 H 98 Respiratory 20 20 18 Rate Blood Pressure 111/71 123/84 H 101/78 O2 Saturation 98 96 98 08/23/19 08/23/19 08/23/19 03:14 04:50 06:36 Temperature 36.6 C Heart Rate 99 97 94 Respiratory 16 18 18 Rate Blood Pressure 100/75 115/80 109/79 O2 Saturation 98 100 98 08/23/19 08:00 Temperature Heart Rate 112 H Respiratory 16 Rate Blood Pressure 107/75 O2 Saturation 98 Oxygen O2 Source Room air - Labs Labs: Laboratory Tests 08/23/19 08/23/19 08/23/19 00:55 00:55 02:13 WBC 23.6 H RBC 4.16 L Hgb 10.6 L Hct 33.7 L MCV 81.0 MCH 25.5 L MCHC 31.5 L RDW 15.2 H Plt Count 318 MPV 11.2 H Neut # (Auto) 20.6 H Lymph # (Auto) 1.2 L [place] # (Auto) 1.2 H Eos # (Auto) 0.2 Baso # (Auto) 0.1 Absolute Nucleated RBC 0.00 Nucleated RBC % 0.0 Manual Slide Review Indicated Platelet Estimate NORMAL (130-450,000) Platelet Morphology NORMAL APPEARANCE RBC Morph Micro Appear NORMAL APPEARANCE Sodium 136 Potassium 3.4 L Chloride 103 Carbon Dioxide 22 Anion Gap 11.0 BUN 13 Creatinine 0.6 Estimated GFR (MDRD) 114 Glucose 126 H Calcium 8.8 Total Bilirubin 0.5 AST 22 ALT 25 Alkaline Phosphatase 136 H Total Protein 7.6 Albumin 2.8 L Globulin 4.8 H Albumin/Globulin Ratio 0.6 L Lipase 25 Urine Color ORANGE Urine Clarity CLEAR Urine pH 6.0 Ur Specific [place] 1.025 Urine Protein 100 H Urine Glucose (UA) NEGATIVE Urine Ketones NEGATIVE Urine Occult Blood LARGE H Urine Nitrite NEGATIVE Urine Bilirubin NEGATIVE Urine Urobilinogen 0.2 (NORMAL) Ur Leukocyte Esterase NEGATIVE Urine RBC 11-25 H Urine WBC 0-3 Ur Squamous Epith Cells MOD Squamous H Urine Bacteria Few Urine Mucus Marked Strands Ur Microscopic Review INDICATED Urine Culture Comments NOT INDICATED - Rads (name of study) CT A/P w/ IV contrast Radiology: Prelim report reviewed, See rad report PD MEDICAL DECISION MAKING - ED course Complexity details: reviewed results, re-evaluated patient, considered differential, d/w patient ED course: D/W Dr. Gilliam; she recommends transfer to higher level of care to include IR. D/W Dr. Kirk (furniture restorer at [facility]) accepts patient for transfer Departure - Departure Disposition: 02 Transfer Acute Care Hosp Clinical Impression: Intra-abdominal abscess Condition: Stable Discharge Date/Time: 08/23/19 08:55
[2019-08-23] MEDS ORDERED: IOVERSOL 320 100 ML VIAL IVP ONE ×2 (04:29→04:44)
[2019-08-23] MEDS ORDERED: ACETAMINOPHEN 1,000 MG/100 ML 100 ML IV ONE (04:51)
--- NOTE | 2019-08-23 05:15 | CT Report ---
Reason: abd. pain, 5 days post-vaginal delivery Procedure Date: 08/23/2019 Accession Number: [id number] / [id number] Procedure: CT - Abdomen/Pelvis W CPT Code: Final Report FULL RESULT: EXAM: CT ABDOMEN AND PELVIS EXAM DATE: 08/23/2019 04:41 AM CLINICAL HISTORY: Abdominal pain, 5 days post-vaginal delivery. COMPARISONS: ABDOMEN LIMITED 03/22/2019 7:40 AM. TECHNIQUE: Routine helical CT imaging was performed through the abdomen and pelvis. IV contrast: Yes. Enteric contrast: No. Reconstructions: Coronal and sagittal. In accordance with CT protocol optimization, one or more of the following dose reduction techniques were utilized for this exam: automated exposure control, adjustment of mA and/or KV based on patient size, or use of iterative reconstructive technique. FINDINGS: Lung Bases: Unremarkable. Liver: Unremarkable. No suspicious masses. Gallbladder/Bile Ducts: Unremarkable. Spleen: Unremarkable. Pancreas: Unremarkable. Adrenal Glands: Unremarkable. Kidneys: Small bilateral nonobstructing renal stones, left more than right. Small left renal cyst. No imaging follow-up required per concensus recommendations based on imaging criteria. No suspicious masses or hydronephrosis. Peritoneal Cavity/Bowel: Severe acute on chronic appearing inflammatory process in the right lower abdomen involving the distal small bowel primarily but with fistula tracts to the cecum. Primarily soft tissue density inflammatory mesenteric mass on image 49 of the axial sequence measures approximately 6 x 4 cm. No fluid component within that mass-like region but there is a small amount of gas. Immediately inferior and medial to the soft tissue inflammatory process there is an approximately 4.5 x 3 x 3 cm gas and fluid collection immediately adjacent to the right aspect of the uterus, consistent with an abscess. This extends inferiorly in the region of the gonadal veins without definitive gonadal vein thrombosis. Evidence of nicho peritonitis with peritoneal injection/thickening and mild free fluid. Pelvic Organs: Large uterus. No ovarian masses seen. Urinary bladder appears unremarkable. Vasculature: No aneurysms or other significant abnormality. Bones: No significant abnormality. Other: None. IMPRESSION: 1. Severe acute on chronic appearing inflammatory process involving the distal small bowel and to a lesser extent the adjacent cecum. 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 Evidence of nicho peritonitis. Malignancy with perforation is felt to be less likely. 2. Abscess abuts the right adnexal gonadal veins but without definitive gonadal venous thrombosis. 3. Small bilateral nonobstructing renal stones. RADIA The critical result notification system was initiated by Dr. Jayce Yoon at 04:57 AM on 08/23/2019. The above critical result findings were discussed with Dr. Steve Thomas by Dr. Jayce Yoon at 05:08 AM on 08/23/2019.
[2019-08-23] MEDS ORDERED: cefTRIAXone 2 GM VIAL IVP STA (07:51)
[2019-08-23] MEDS ORDERED: metroNIDAZOLE 500 MG/100 ML 500 MG/100 ML BAG IV STA (07:51)
[2019-08-23] MEDS ORDERED: SODIUM CHLORIDE 0.9% 1,000 ML IV STA (08:11)
[2019-08-23 08:19] VITALS: BP 107/75
== END 2019-08-23 08:55 | disposition short-term general hospital (02) ==
LOC: ED 00:20
DX: O99.89 Other specified diseases and conditions complicating pregnancy, childbirth and the puerperium (principal); K65.1 Peritoneal abscess; R93.3 Abnormal findings on diagnostic imaging of other parts of digestive tract; N20.0 Calculus of kidney
CPT/HCPCS: 36415; 74177; 80053; 81001; 83690; 85025; 96365; 96375; 99285; J0131; Q9967; 81003; 87086

== ENCOUNTER 2019-08-23 08:57 | Outpatient (CLI) | payer OTHER | END 2019-08-23 08:58 | disposition short-term general hospital (02) | LOC: EMS 08:57 | PROVIDERS: ATTEND Surgery | DX: O90.89 Other complications of the puerperium, not elsewhere classified (principal); K65.1 Peritoneal abscess | CPT/HCPCS: A0425; A0426 ==

== ENCOUNTER 2019-09-18 10:30 | Outpatient (CLI) | payer OTHER ==
[2019-09-18 12:37] LABS: BASOPHILS # (AUTO) 0.1 10^3/uL (0.0-0.1); BASOPHILS % (AUTO) 0.5 %; EOSINOPHILS # (AUTO) 0.5 10^3/uL (0.0-0.7); HGB - HEMOGLOBIN 10.3 g/dL (12.0-16.0); LYMPHOCYTES % (AUTO) 15.1 %; MEAN CORPUSCULAR HEMOGLOBIN 24.4 pg (27.0-31.0); MEAN CORPUSCULAR HGB CONC 30.4 g/dL (32.0-36.0); MEAN CORPUSCULAR VOLUME 80.3 fL (81.0-99.0); MEAN PLATELET VOLUME 12.4 fL (7.9-10.8); MONOCYTES # (AUTO) 0.8 10^3/uL (0.0-1.0); MONOCYTES % (AUTO) 6.3 %; NEUTROPHILS # (AUTO) 9.6 10^3/uL (1.5-6.6); NEUTROPHILS % (AUTO) 73.3 %; PLT - PLATELET COUNT 302 10^3/uL (130-450); RED BLOOD COUNT 4.22 10^6/uL (4.20-5.40); RED CELL DISTRIBUTION WIDTH 15.6 % (12.0-15.0); WHITE BLOOD COUNT 13.1 x10^3/uL (4.8-10.8)
[2019-09-18 12:44] LABS: CALCIUM 9.2 mg/dL (8.5-10.3); CREATININE 0.7 mg/dL (0.4-1.0)
== END 2019-09-18 23:59 | disposition home or self-care (01) ==
LOC: LAB.R 10:30
PROVIDERS: ATTEND Internal Medicine Infectious Disease
DX: K65.1 Peritoneal abscess (principal)
CPT/HCPCS: 80048; 85025

== ENCOUNTER 2019-09-29 08:00 | Outpatient (CLI) | payer OTHER | END 2019-09-29 23:59 | disposition home or self-care (01) | LOC: LAB.R 08:00 | PROVIDERS: ATTEND Internal Medicine | DX: R19.7 Diarrhea, unspecified (principal) | CPT/HCPCS: 87493 ==

== ENCOUNTER 2020-08-13 08:11 | Outpatient (CLI) | payer OTHER ==
--- NOTE | 2020-08-13 10:04 | Ultrasound Report ---
PROCEDURE: Abdomen Limited INDICATIONS: ELEVATED LIVER FUNCTION TEST TECHNIQUE: Real-time focused scanning was performed of the abdomen, with image documentation. COMPARISON: 03/22/2019 FINDINGS: Liver is normal in size. Diffusely increased liver parenchymal echotexture is seen consistent with he patic steatosis. No discrete hepatic lesion. There is no gallstone. Tiny polyp measures 4 mm in size is seen unchanged from previous study. No gal lbladder wall thickening or pericholecystic fluid. No sonographic Kraus's sign. There is no intrahepatic biliary ductal dilatation. Extrahepatic biliary duct measures up to 2 mm in size and is within normal limits. Visualized portion of pancreas shows no gross abnormality. Right kidney measures 10.2 cm in length. Slightly increased renal parenchymal echotexture is seen. 4 mm echogenic focus is noted in interpolar region of right kidney likely represent a nonobstructing st one. No hydronephrosis. No solid-appearing renal lesion. IMPRESSION: 1. Hepatic steatosis, no discrete hepatic lesion. 2. Stable appearing 4 mm gallbladder polyp. No sonographic evidence of acute cholecystitis. No biliar y ductal dilatation. 3. Questionable increased right renal parenchymal echotexture which could represent mild medical silas l disease, suggest clinical correlation. 4 mm nonobstructing right renal calculus. No hydronephrosis. Reviewed by: Mina Coronado MD on 08/13/2020 9:03 AM SANDRA Approved by: Mina Coronado MD on 08/13/2020 9:03 AM SANDRA Station ID: [id number]
== END 2020-08-13 08:12 | disposition home or self-care (01) ==
LOC: DI 08:11
PROVIDERS: ATTEND Internal Medicine
DX: K76.0 Fatty (change of) liver, not elsewhere classified (principal); K82.4 Cholesterolosis of gallbladder; N20.0 Calculus of kidney

== ENCOUNTER 2020-11-24 10:04 | Emergency (ER) | payer OTHER ==
[2020-11-24 10:16] VITALS: BP 144/78
[2020-11-24] MEDS ORDERED: cephALEXin 250 MG CAPSULE PO STA (10:24)
--- NOTE | 2020-11-24 10:27 | ED Physician Documentation ---
History of Present Illness - Stated complaint Stated Complaint: BREAST,BODY PX - Chief complaint Chief Complaint: General - History obtained from History obtained from: Patient - History of Present Illness Timing: Today Pain level max: 5 Pain level now: 5 - Additonal information Additional information: 35 year old female currently , states redness and swelling to the L breast. Fever today. Chills. On Remicade for crohn's disease. Nothing makes it better. Worse with palpation. No cough, abd pain, vomiting, urinary symptoms, vaginal discharge. 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 : None HEENT: None Psych: Depression Musculoskeletal: None Derm: None - Past Surgical History Past Surgical History: Yes /CLAIMS CORRESPONDENCE CLERK: section, Other - Present Medications Home Medications: Ambulatory Orders Medication Instructions Recorded Confirmed Albuterol Sulf [Ventolin Hfa 2 puffs INH Q4HR PRN #1 inhaler 03/08/17 Inhaler] Hydrocodone/Acetaminophen [[place] 1 each PO Q6H PRN #15 tablet 04/02/19 5-325 Tablet] Naproxen 375 mg PO BID #20 tablet 04/02/19 cephALEXin [Keflex] 500 mg PO TID #20 capsule 04/02/19 cephALEXin [Keflex] 500 mg PO Q6H #40 cap 11/24/20 - Allergies Allergies/Adverse Reactions: Allergies Allergy/AdvReac Type Severity Reaction Status Date / Time Penicillins Allergy Unknown Verified 11/24/20 10:16 montelukast [From Singulair] AdvReac Unknown Verified 11/24/20 10:16 - Social History Does the pt smoke?: No Smoking Status: Never smoker Does the pt drink ETOH?: No Does the pt have substance abuse?: No - Immunizations Immunizations are current?: Yes - POLST Patient has POLST: No PD ED PE NORMAL - Vitals Vital signs reviewed: Yes - General General: Alert and oriented X 3, No acute distress - Neck Neck: Supple, no meningeal sign - Cardiac Cardiac: RRR - Respiratory Respiratory: No respiratory distress, Clear bilaterally - Derm Derm: Warm and dry - Extremities Extremities: No edema, No calf tenderness / cord - Neuro Neuro: Alert and oriented X 3 - Psych Psych: Normal mood, Normal affect - Free text exam Free text exam: erythema and streaking to the left breast. Tenderness over the left breast as well. No palpable abscess. Results - Vitals Vitals: Vital Signs - 24 hr 11/24/20 10:07 Temperature 38.8 C H Heart Rate 132 H Respiratory 15 Rate Blood Pressure 144/78 H O2 Saturation 97 Oxygen O2 Source Room air PD MEDICAL DECISION MAKING - ED course Complexity details: reviewed results, re-evaluated patient, considered differential, d/w patient ED course: 35-year-old female with mastitis. We will place on antibiotics. No evidence of abscess. Patient is well-appearing, nontoxic. She will use Motrin and Tylenol as needed for pain and fever at home. We will continue breast-feeding. Patient counseled regarding signs and symptoms for which I believe and urgent re- evaluation would be necessary. Patient with good understanding of and agreement to plan and is comfortable going home at this time This document was made in part using voice recognition software. While efforts are made to proofread this document, sound alike and grammatical errors may occur. Departure - Departure Disposition: 01 Home, Self Care Clinical Impression: Mastitis Fever Qualifiers: Fever type: unspecified Qualified Code(s): R50.9 - Fever, unspecified Condition: Good Instructions: ED Breast Infec Follow-Up: SALLIE WAGONER DO [Primary Care Provider] - Within 1 week Prescriptions: cephALEXin [Keflex] 500 mg PO Q6H #40 cap Comments: Take all antibiotics until gone. You can use motrin or tylenol as needed for pain.
== END 2020-11-24 10:39 | disposition home or self-care (01) ==
LOC: ED 10:04
DX: N61.0 Mastitis without abscess (principal)
CPT/HCPCS: 99283; 99284; A9270; 80053; 83690; 85025

== ENCOUNTER 2021-05-29 20:53 | Emergency (ER) | payer OTHER ==
[2021-05-29 21:18] LABS: BASOPHILS # (AUTO) 0.1 10^3/uL (0.0-0.1); BASOPHILS % (AUTO) 0.7 %; EOSINOPHILS # (AUTO) 0.2 10^3/uL (0.0-0.7); EOSINOPHILS % (AUTO) 2.1 %; HCT - HEMATOCRIT 38.7 % (37.0-47.0); HGB - HEMOGLOBIN 13.2 g/dL (12.0-16.0); LYMPHOCYTES # (AUTO) 3.4 10^3/uL (1.5-3.5); LYMPHOCYTES % (AUTO) 40.8 %; MEAN CORPUSCULAR HEMOGLOBIN 31.4 pg (27.0-31.0); MEAN CORPUSCULAR HGB CONC 34.1 g/dL (32.0-36.0); MEAN CORPUSCULAR VOLUME 91.9 fL (81.0-99.0); MONOCYTES # (AUTO) 0.7 10^3/uL (0.0-1.0); MONOCYTES % (AUTO) 7.8 %; NEUTROPHILS % (AUTO) 48.4 %; PLT - PLATELET COUNT 204 10^3/uL (130-450); RED BLOOD COUNT 4.21 10^6/uL (4.20-5.40); RED CELL DISTRIBUTION WIDTH 13.6 % (12.0-15.0); WHITE BLOOD COUNT 8.3 x10^3/uL (4.8-10.8)
[2021-05-29 21:23] LABS: BILIRUBIN,URINE NEGATIVE (NEGATIVE); GLUCOSE, URINE (UA) NEGATIVE (NEGATIVE); KETONES,URINE (UA) NEGATIVE (NEGATIVE); LEUKOCYTE ESTERASE, URINE NEGATIVE (NEGATIVE); NITRITE,URINE NEGATIVE (NEGATIVE); OCCULT BLOOD,URINE TRACE-INTA (NEGATIVE); PH,URINE 7.5 PH (5.0-7.5); PROTEIN,URINE NEGATIVE (NEGATIVE); UROBILINOGEN,URINE 0.2 (NORMAL) E.U./dL (NORMAL)
[2021-05-29 21:29] LABS: CLARITY,URINE CLEAR (CLEAR); HCG UR QUAL NEGATIVE
[2021-05-29 21:32] LABS: ALBUMIN 4.4 g/dL (3.2-5.5); ALBUMIN/GLOBULIN RATIO 1.4 (1.0-2.2); BILIRUBIN,TOTAL 0.3 mg/dL (0.2-1.0); CREATININE 0.6 mg/dL (0.4-1.0); POTASSIUM 3.6 mmol/L (3.5-5.0); TOTAL PROTEIN 7.6 g/dL (6.7-8.2)
[2021-05-29] MEDS ORDERED: ONDANSETRON 4 MG/2 ML VIAL IVP STA (21:50)
[2021-05-29] MEDS ORDERED: SODIUM CHLORIDE 0.9% 1,000 ML IV STA (21:50)
[2021-05-29] MEDS ORDERED: iohexoL-300 100 ML VIAL ONE (22:30)
[2021-05-29] MEDS ORDERED: iohexoL-300 100 ML VIAL IVP ONE (22:54)
--- NOTE | 2021-05-29 23:02 | ED Physician Documentation ---
History of Present Illness - Stated complaint Stated Complaint: ABD PX/NAUSEA - Chief complaint Chief Complaint: Abd Pain - History obtained from History obtained from: Patient - Additonal information Additional information: 35yF with pmh crohns c/by fistula, stricture and abscess in the past , ovarian torsion s/p detorsion and R cyst removal, also with PSH L ovarian cystectomy and c section p/w 2 weeks of waxing and waning gradual onset abdominal pain, currently worst in RLQ and radiating diffusely, a/w nausea but no vomiting, as well as some dysuria yesterday. denies fever, back pain, blood in stool, gross hematuria, increased frequency. +loose stools. Review of Systems Ten Systems: 10 systems reviewed and negative Constitutional: denies: Fever, Chills Cardiac: denies: Chest pain / pressure Respiratory: denies: Dyspnea GI: reports: Abdominal Pain, Nausea. denies: Vomiting, Bloody / black stool : reports: Dysuria. 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: section, Other - Present Medications Home Medications: Ambulatory Orders Medication Instructions Recorded Confirmed Albuterol Sulf [Ventolin Hfa 2 puffs INH Q4HR PRN #1 inhaler 03/08/17 Inhaler] Hydrocodone/Acetaminophen [[place] 1 each PO Q6H PRN #15 tablet 04/02/19 5-325 Tablet] Naproxen 375 mg PO BID #20 tablet 04/02/19 cephALEXin [Keflex] 500 mg PO TID #20 capsule 04/02/19 cephALEXin [Keflex] 500 mg PO Q6H #40 cap 11/24/20 Tamsulosin [Flomax] 0.4 mg PO DAILY 14 Days #14 tab 05/29/21 - Allergies Allergies/Adverse Reactions: Allergies Allergy/AdvReac Type Severity Reaction Status Date / Time Penicillins Allergy Unknown Verified 05/29/21 21:02 montelukast [From Singulair] AdvReac Unknown Verified 05/29/21 21:02 - Social History Does the pt smoke?: No Smoking Status: Never smoker Does the pt drink ETOH?: No Does the pt have substance abuse?: No - Immunizations Immunizations are current?: Yes - POLST Patient has POLST: No PD ED PE NORMAL - Vitals Vital signs reviewed: Yes - General General: Alert and oriented X 3, No acute distress, Well developed/nourished - HEENT HEENT: Atraumatic, PERRL, EOMI - Neck Neck: Supple, no meningeal sign - Cardiac Cardiac: RRR - Respiratory Respiratory: No respiratory distress, Clear bilaterally - Abdomen Abdomen: Non tender, Non distended, Other (RLQ discomfort to palpation. ) - Back Back: No CVA TTP - Derm Derm: Normal color, Warm and dry - Extremities Extremities: No deformity - Neuro Neuro: Alert and oriented X 3, No motor deficit, No sensory deficit - Psych Psych: Normal mood, Normal affect Results - Vitals Vitals: Vital Signs - 24 hr 05/29/21 23:10 Temperature 36.9 C Heart Rate 69 Respiratory 17 Rate Blood Pressure 117/79 O2 Saturation 100 Oxygen O2 Source Room air - Labs Labs: Laboratory Tests 05/29/21 05/29/21 05/29/21 21:05 21:14 21:14 WBC 8.3 RBC 4.21 Hgb 13.2 Hct 38.7 MCV 91.9 MCH 31.4 H MCHC 34.1 RDW 13.6 Plt Count 204 MPV 12.0 H Neut # (Auto) 4.0 Lymph # (Auto) 3.4 [place] # (Auto) 0.7 Eos # (Auto) 0.2 Baso # (Auto) 0.1 Absolute Nucleated RBC 0.00 Nucleated RBC % 0.0 Sodium 136 Potassium 3.6 Chloride 103 Carbon Dioxide 24 Anion Gap 9.0 BUN 10 Creatinine 0.6 Estimated GFR (MDRD) 113 Glucose 118 H Calcium 9.0 Total Bilirubin 0.3 AST 33 ALT 43 Alkaline Phosphatase 66 Total Protein 7.6 Albumin 4.4 Globulin 3.2 Albumin/Globulin Ratio 1.4 Lipase 41 Urine Color YELLOW Urine Clarity CLEAR Urine pH 7.5 Ur Specific [place] 1.015 Urine Protein NEGATIVE Urine Glucose (UA) NEGATIVE Urine Ketones NEGATIVE Urine Occult Blood TRACE-INTA Urine Nitrite NEGATIVE Urine Bilirubin NEGATIVE Urine Urobilinogen 0.2 (NORMAL) Ur Leukocyte Esterase NEGATIVE Ur Microscopic Review NOT INDICATED Urine Culture Comments NOT INDICATED Urine HCG, Qual NEGATIVE PD MEDICAL DECISION MAKING - ED course ED course: Patient with no evidence of abscess, fistula, or phlegmon on CT. She does have multiple kidney stones including one that appears just to have passed into the bladder on the right, possibly explaining her symptoms. No evidence of appendicitis and patient is nonperitoneal on exam. Declined pain meds, stating pain is manageable on its own. Pelvic u/s with no evidence of torsion. Return precautions discussed. patient will plan to f/u with urology. Departure - Departure Disposition: 01 Home, Self Care Clinical Impression: Kidney stones, Abdominal pain, Nausea Condition: Good Instructions: Kidney Stones Follow-Up: Char Dewey MD [Physician No Access] - Prescriptions: Tamsulosin [Flomax] 0.4 mg PO DAILY 14 Days #14 tab Comments: You were seen in the emergency department for evaluation of right lower abdominal pain. Your labwork including blood tests for infection (white blood cell count), anemia, platelets, electrolytes, organ function, and urine was normal. Your test was negative. Your CT did not show abscess or crohns complications, but it did show multiple kidney stones on both sides of the urinary tract. The right side of your bladder has a stone there that may have recently passed. Your ultrasound showed good blood flow. You have a cyst on your right ovary that is a little less than 2cm in diameter. Please follow up with urology and dobie worker. Take tylenol 650mg every 6 hours as needed for pain. Flomax is being prescribed. This is a medication that may help you to pass kidney stones. You also should drink lots of water daily. Return to the emergency department if you have new or worsening symptoms or other concerns. Discharge Date/Time: 05/30/21 00:19
[2021-05-29 23:11] VITALS: BP 117/79
--- NOTE | 2021-05-29 23:24 | CT Report ---
PROCEDURE: Abdomen/Pelvis W INDICATIONS: RLQ pain X 2 wks, hx crohns with fistula, abscess CONTRAST: IV CONTRAST: Isovue 300 ml: 100 PO CONTRAST: *NO PO CONTRAST TECHNIQUE: After the administration of contrast, 5 mm thick sections acquired from the diaphragms to the sym physis. 5 mm thick coronal and sagittal reformats were acquired. For radiation dose reduction, the following was used: automated exposure control, adjustment of mA and/or kV according to patient size . COMPARISON: Prior abdominal ultrasounds studies from March 2019 and 08/13/2020. FINDINGS: Image quality: Excellent. ABDOMEN: Lung bases: Lung bases are clear. Heart size is normal. Solid organs: Liver and spleen are normal in size and enhancement. Gallbladder is free of inflammat ion Biliary system is non dilated. Pancreas enhances normally. No adrenal nodules. Kidneys demons trate normal size and enhancement, without hydronephrosis but there are bilateral urinary tract stone s, measuring 2 x 3 mm at the lower third collecting system of the right kidney and 2 separate calculi are seen at the left central renal collecting system and its middle and lower thirds measuring appro ximately 3 x 4 mm and 4 x 6 mm and then slightly more superiorly a 3 x 3 mm calculus can be seen on t he left, none of which appear obstructed. More distally in the expected position of the far distal ri ght ureter there is a 2 x 2 mm calculus and a 2 x 3 mm calculus, seen on CT series 3 image 74 and 73, respectively.. Peritoneum and bowel: Bowel loops demonstrate normal wall thickness and caliber. No free fluid or a ir. Nodes and vessels: No retroperitoneal or mesenteric adenopathy by size criteria. Aorta and inferior vena cava are normal in size. Miscellaneous: No ventral hernias. PELVIS: Genitourinary: Bladder wall thickness is normal. Miscellaneous: No inguinal hernias or adenopathy. Definite appendicitis is not found. The appendix appears slightly indistinctly marginated but not distended, measuring up to 6 mm in maximal axial dim ension. Incidental note is made of a 1.3 cm calcification within the distal ileum, nonobstructive, po tentially food material. Bones: No suspicious bony lesions. No vertebral body compression fractures. IMPRESSION: 1. No abscess found. 2. Definite urinary tract stones are seen within the collecting system of each kidney, slightly great er on the left than the right, none of which appear obstructed. 3. 2 separate distal ureteral stones appear present at the right ureter at the bladder margin. 4. The appendix appears slightly indistinctly marginated, a nonspecific finding in the absence of abs cess formation or appendiceal dilatation. The clinical history indicates a known history of inflammat ory bowel disease which could produce this appearance. 5. Incidental note is made of an ovoid calcification within the distal small bowel lumen, measuring o nly approximately 1.3 cm, nonobstructive, potentially food material. Reviewed by: Skyler Dietrich MD on 05/29/2021 11:23 PM PST Approved by: Skyler Dietrich MD on 05/29/2021 11:23 PM PST Station ID: [id number]
--- NOTE | 2021-05-30 00:27 | Ultrasound Report ---
PROCEDURE: Pelvic w/Doppler Complete INDICATIONS: RLQ PAIN, HX OVARIAN TORSION TECHNIQUE: Real-time scanning was performed of the pelvic organs, with image documentation. Additional endovagi nal scanning was necessary due to incomplete visualization of the adnexal and endometrial structures by transabdominal scanning. COMPARISON: CT abdomen/pelvis same day.. FINDINGS: No pathologic free abdominal or pelvic fluid. Uterus: Uterus is normal in size at 4.6 x 6.3 x 9.6 cm. The endometrium measures 9.0 mm in combined thickness. Ovaries: The right ovary measures 4.7 x 3.0 x 3.8 cm with an ovarian volume of 27.3 cc. There is a h emorrhagic right ovarian cyst. The left ovary measures 2.6 x 1.5 x 3.2 cm. No cystic or solid left ov rafael abnormality is seen. There is no suspicion for torsion bilaterally. IMPRESSION: No sign of ovarian torsion. Right-sided hemorrhagic ovarian cyst measures up to 1.7 x 1.6 x 2.0 cm. Reviewed by: Skyler Dietrich MD on 05/30/2021 12:25 AM PST Approved by: Skyler Dietrich MD on 05/30/2021 12:25 AM PST Station ID: [id number]
== END 2021-05-30 00:19 | disposition home or self-care (01) ==
LOC: ED 20:53
DX: N20.0 Calculus of kidney (principal); N20.1 Calculus of ureter
CPT/HCPCS: 36415; 74177; 76856; 80053; 81003; 81025; 83690; 85025; 93975; 96361; 96374; 99283; 99284; Q9967; 81001; 87086

== ENCOUNTER 2021-06-09 23:51 | Emergency (ER) | payer OTHER ==
[2021-06-10 00:24] LABS: BASOPHILS # (AUTO) 0.1 10^3/uL (0.0-0.1); BASOPHILS % (AUTO) 0.8 %; EOSINOPHILS # (AUTO) 0.2 10^3/uL (0.0-0.7); EOSINOPHILS % (AUTO) 2.3 %; HCT - HEMATOCRIT 37.7 % (37.0-47.0); HGB - HEMOGLOBIN 12.6 g/dL (12.0-16.0); LYMPHOCYTES # (AUTO) 3.7 10^3/uL (1.5-3.5); LYMPHOCYTES % (AUTO) 39.6 %; MEAN CORPUSCULAR HEMOGLOBIN 30.7 pg (27.0-31.0); MEAN CORPUSCULAR HGB CONC 33.4 g/dL (32.0-36.0); MEAN PLATELET VOLUME 12.4 fL (7.9-10.8); MONOCYTES # (AUTO) 0.7 10^3/uL (0.0-1.0); MONOCYTES % (AUTO) 7.8 %; NEUTROPHILS # (AUTO) 4.6 10^3/uL (1.5-6.6); NEUTROPHILS % (AUTO) 49.3 %; PLT - PLATELET COUNT 191 10^3/uL (130-450); RED CELL DISTRIBUTION WIDTH 13.6 % (12.0-15.0); WHITE BLOOD COUNT 9.3 x10^3/uL (4.8-10.8)
[2021-06-10 00:41] LABS: ALBUMIN 4.3 g/dL (3.2-5.5); ALBUMIN/GLOBULIN RATIO 1.2 (1.0-2.2); BILIRUBIN,TOTAL 0.5 mg/dL (0.2-1.0); CALCIUM 9.4 mg/dL (8.5-10.3); CREATININE 0.7 mg/dL (0.4-1.0); POTASSIUM 3.5 mmol/L (3.5-5.0); TOTAL PROTEIN 7.8 g/dL (6.7-8.2)
--- NOTE | 2021-06-10 00:49 | XRAY Report ---
PROCEDURE: Chest 1 View X-Ray INDICATIONS: Chest pain TECHNIQUE: One view of the chest was acquired. COMPARISON: None FINDINGS: Surgical changes and devices: None. Lungs and pleura: No pleural effusions or pneumothorax. Lungs are clear. Mediastinum: Mediastinal contours appear normal. Heart size is normal. Bones and chest wall: No suspicious bony lesions. Overlying soft tissues appear unremarkable. Mild rightward curvature of the thoracic spine. IMPRESSION: No cardiopulmonary abnormality Reviewed by: Pacheco Samayoa on 06/10/2021 12:48 AM RUST Approved by: Pacheco Samayoa on 06/10/2021 12:48 AM RUST Station ID: [id number]
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
[2021-06-10 05:16] VITALS: BP 125/85
== END 2021-06-10 05:28 | disposition home or self-care (01) ==
LOC: ED 23:51
DX: R20.8 Other disturbances of skin sensation (principal); R00.2 Palpitations
CPT/HCPCS: 36415; 80053; 83690; 84484; 85025; 93005; 99282; 99284

== ENCOUNTER 2021-06-17 15:22 | Outpatient (CLI) | payer OTHER ==
--- NOTE | 2021-06-17 17:47 | Ultrasound Report ---
PROCEDURE: Ultrasound kidneys INDICATIONS: NEPHROLITHIASIS TECHNIQUE: Real-time scanning was performed of the retroperitoneal organs, with image documentation. COMPARISON: 08/13/2020 FINDINGS: Kidneys: Right and left kidneys measure 9.6 and 9.7 cm respectively. There are several nonobstructing renal calculi. The lower pole right kidney, there is a 5 mm calculus, in the lower pole of the left kidney there are a 6 mm and 7 mm calculus. No hydronephrosis bilaterally. 1.1 x 1.5 cm cyst noted in the upper pole of the left kidney. Bladder: Prevoid urinary bladder is 355 cc, and postvoid latter is 19 cc. Both ureteral jets noted. IMPRESSION: 1. Bilateral nonobstructing renal calculi. No hydronephrosis. 2. Small left renal cortical cyst. Reviewed by: Fredy Rod MD on 06/17/2021 4:46 PM AKST Approved by: Fredy Rod MD on 06/17/2021 4:46 PM AKST Station ID: [id number]
== END 2021-06-17 15:23 | disposition home or self-care (01) ==
LOC: DI 15:22
PROVIDERS: ATTEND Urology
DX: N20.0 Calculus of kidney (principal); N28.1 Cyst of kidney, acquired

== ENCOUNTER 2021-09-01 11:34 | Outpatient (CLI) | payer OTHER ==
--- NOTE | 2021-09-01 16:55 | XRAY Report ---
PROCEDURE: Abdomen 1 View X-Ray INDICATIONS: CALCIUM ON KIDNEY TECHNIQUE: One view of the abdomen acquired. COMPARISON: CT of the abdomen and pelvis dated 05/29/2021. FINDINGS: Surgical changes and devices: None. Bowel: Bowel gas pattern is normal. Soft tissues: Bilateral radiopacities are projected over the expected regions of the kidneys which li anai represent the renal calculi visualized on the comparison CT from 05/29/2021. Phleboliths are rede monstrated within the right hemipelvis. Bones: No suspicious bony lesions. IMPRESSION: Bilateral nephrolithiasis similar to the 05/29/2021 CT. Reviewed by: Kimmie Ulloa MD on 09/01/2021 4:53 PM PDT Approved by: Kimmie Ulloa MD on 09/01/2021 4:53 PM PDT Station ID: [id number]
== END 2021-09-01 11:35 | disposition home or self-care (01) ==
LOC: DI 11:34
PROVIDERS: ATTEND Urology
DX: N20.0 Calculus of kidney (principal)

== ENCOUNTER 2022-08-31 12:30 | Outpatient (CLI) | payer OTHER ==
--- NOTE | 2022-08-31 16:28 | XRAY Report ---
PROCEDURE: Abdomen 1 View X-Ray INDICATIONS: KIDNEY STONE TECHNIQUE: One view of the abdomen acquired. COMPARISON: 09/01/2021 FINDINGS: Surgical changes and devices: None. Bowel: Bowel gas pattern is normal. Soft tissues: Left-sided renal stones are same in size and number, largest measuring 1.0 cm. Right-si ded renal stone not visualized. Bones: No suspicious bony lesions. IMPRESSION: Left-sided renal stones are same in size and number, largest measuring 1.0 cm. Right-sided renal ston e not visualized Reviewed by: Hany Torres on 08/31/2022 4:27 PM PDT Approved by: Hany Torres on 08/31/2022 4:27 PM PDT Station ID: [id number]
== END 2022-08-31 12:31 | disposition home or self-care (01) ==
LOC: DI 12:30
PROVIDERS: ATTEND Physician Assistant Medical
DX: N20.0 Calculus of kidney (principal)

== ENCOUNTER 2023-08-31 10:41 | Emergency (ER) | payer OTHER ==
[2023-08-31] MEDS: CHERRY SYRUP 10 ML UDC PO ONE (12:02)
[2023-08-31] MEDS: FAMOTIDINE 20 MG TABLET PO STA (12:03)
[2023-08-31] MEDS: DEXAMETHASONE 10 MG/ML VIAL PO STA (12:03)
[2023-08-31] MEDS: diphenhydrAMINE 25 MG CAPSULE PO STA (12:03)
--- NOTE | 2023-08-31 12:54 | ED Physician Documentation ---
PD HPI HEENT - Stated complaint Stated Complaint: LIP SWELLING,CONGESTION - Chief complaint Chief Complaint: Heent - History obtained from History obtained from: Patient - Additional information Additional information: Patient is a 38-year-old female with a history of high blood pressure presenting for evaluation of lip swelling that she noticed this morning at 5:00. Patient reported having cough and congestion yesterday and took DayQuil. She states she feels much better today but noted the lip swelling this morning. It has started to improve without any intervention. Denies a prior history of similar symptoms. Does not take an WILBUR inhibitor or an ARB. Denies throat swelling or irritation, difficulty breathing.Patient denies any new medications, or other exposures such as new lotions or Chapstick's. 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: section, Other - Present Medications Home Medications: Ambulatory Orders Medication Instructions Recorded Confirmed Cetirizine [ZyrTEC] 10 mg PO DAILY PRN #5 tablet 08/31/23 Famotidine [Pepcid] 20 mg PO BID PRN #10 tablet 08/31/23 - Allergies Allergies/Adverse Reactions: Allergies Allergy/AdvReac Type Severity Reaction Status Date / Time Penicillins Allergy Unknown Verified 08/31/23 11:59 montelukast [From Singulair] AdvReac Unknown Verified 08/31/23 11:59 NSAIDS (Non-Steroidal AdvReac Emesis Verified 08/31/23 11:59 Anti-Inflamma - Social History Does the pt smoke?: No Smoking Status: Never smoker Does the pt drink ETOH?: No Does the pt have substance abuse?: No - Immunizations Immunizations are current?: Yes - POLST Patient has POLST: No PD ED PE NORMAL - General General: Alert and oriented X 3, No acute distress, Well developed/nourished - HEENT HEENT: Atraumatic, Moist mucous membranes, Pharynx benign (No oral swelling, erythema or exudate), Other (Mild swelling to upper and lower lips with faint erythema) - Neck Neck: Supple, no meningeal sign - Cardiac Cardiac: RRR - Respiratory Respiratory: No respiratory distress, Clear bilaterally - Derm Derm: Warm and dry - Neuro Neuro: Normal speech Results - Vitals Vitals: Vital Signs - 24 hr 08/31/23 08/31/23 10:48 13:14 Temperature 36.7 C 36.0 C L Heart Rate 98 107 H Respiratory 20 18 Rate Blood Pressure 138/89 H 132/91 H O2 Saturation 100 99 Oxygen O2 Source Room air PD Medical Decision Making - ED course ED course: Patient with swelling to upper and lower lip since this morning. Vital signs are stable. Lung sounds are clear. Speech is clear. No signs of involvement of deeper airway structures. Concern for angioedema versus contact dermatitis. Patient given a dose of Decadron, Pepcid and Benadryl. Patient observed with symptoms continuing to improve here. She is not on an WILBUR inhibitor or an ARB. She has been on amlodipine for over a year. Discussed the etiology of this reaction which likely seems allergic in nature is unclear and would recommend close follow-up. Patient advised on strict return precautions. Departure - Departure Disposition: 01 Home, Self Care Clinical Impression: Angioedema, Lip swelling Condition: Stable Instructions: ED Angioedema Prescriptions: Famotidine [Pepcid] 20 mg PO BID PRN #10 tablet PRN Reason: Angioedema Cetirizine [ZyrTEC] 10 mg PO DAILY PRN #5 tablet PRN Reason: Angioedema Comments: The swelling of your lips is concerning for an allergic process called angioedema. I have given you a dose of a long-acting steroid called Decadron as well as antihistamine medications including Benadryl and Pepcid. I would have you continue with antihistamines As long as you are having any symptoms of itching or swelling. You develop any worsening please return immediately to the emergency department. I sent prescriptions to [facility] in [place]. Forms: PCP List Discharge Date/Time: 08/31/23 13:33
[2023-08-31] MEDS: CETIRIZINE 10 MG TABLET PO STA (13:09)
[2023-08-31 13:25] VITALS: BP 132/91; O2SAT 99
== END 2023-08-31 13:33 | disposition home or self-care (01) ==
LOC: ED 10:41
DX: I10 Essential (primary) hypertension (principal); J45.909 Unspecified asthma, uncomplicated; T78.3XXA Angioneurotic edema, initial encounter; R22.0 Localized swelling, mass and lump, head
CPT/HCPCS: 99283; A9270